=== PATIENT | female | born 1960 | race Caucasian/White ===

== ENCOUNTER 2017-03-08 06:28 | Day surgery (SDC) | payer BC ==
[~2017-03-08] VITALS: Ht 167.6 cm; Wt 98.0 kg
[~2017-03-08 06:28] MED LIST: (None)20 M1 PO; ACET500 PO; ALBU90OI61 INH; ALLEGRA ALLERG180 M1 PO; CALCA500CH PO; CHOL10002 PO; DIPH50 PO; DOCU100 PO; LISI5 PO; MIRALAX17 GM PO; POLY500 PO; PRAV20 PO; Solaraze100 GM TOP; TUDORZA PRESS400 MCG IH; VICODIN ES 7.51 EACH PO
== END 2017-03-08 23:00 | disposition home or self-care (01) ==
LOC: ORSCMMR 06:28
PROVIDERS: Surgery
PROC: 0WUF0JZ Supplement Abdominal Wall with Synthetic Substitute, Open Approach (ICD-10-PCS; principal; 2017-03-08 08:00)
PROC: 0HB7XZX Excision of Abdomen Skin, External Approach, Diagnostic (ICD-10-PCS; principal; 2017-03-08 08:00)
DX: K43.2 Incisional hernia without obstruction or gangrene (principal); L90.5 Scar conditions and fibrosis of skin; I10 Essential (primary) hypertension; J44.9 Chronic obstructive pulmonary disease, unspecified; F17.210 Nicotine dependence, cigarettes, uncomplicated; E66.01 Morbid (severe) obesity due to excess calories; Z68.35 Body mass index [BMI] 35.0-35.9, adult; Z79.899 Other long term (current) drug therapy
CPT/HCPCS: 88305; C1713; C1781; J0690; J1100; J1885; J2250; J2270; J2405; J2710; J3010; J7120